=== PATIENT | female | born 1970 | race Caucasian/White ===

== ENCOUNTER 2016-07-24 18:26 | Emergency (ER) | payer OTHER ==
--- NOTE | ~2016-07-24 | CT71 ---
[facility] A Service of [facility] RADIOLOGY TEXT RESULTS PATIENT: COLTON KUHN LOCATION: [facility] : 70 UNIT #: [id number] AGE: [address]: Opal Steele MD SEX: F ORDER DR: [id number] [place], [place] [address] [id number] E MR#: [id number] Acc #: [id number] NAME: COLTON KUHN. : 1970 SEX: F STUDY DATE/TIME: 07/24/2016 17:17 UNIT: [place] ROOM: STUDY DESCRIPTION: CT Head Wo Contrast Attending Physician: Opal Steele M.D. Ordering Physician: Opal Steele M.D. Primary Care Physician: Primary Care Physician No MEDICAL IMAGING REPORT This report is preliminary unless electronic signature is present EXAM CT brain without contrast, 07/24/2016 HISTORY Headache for 2 weeks. No injury. TECHNIQUE This CT exam was performed with one or more of the following radiation dose reduction techniques: automatic exposure control, adjustment of mA and/or kV according to patient size, and iterative reconstruction. FINDINGS CT brain without contrast demonstrates probable prominent perivascular spaces in the right lentiform nucleus, likely incidental. No intracranial hemorrhage, mass or edema. No midline shift, ventricular dilatation, or extraaxial fluid collection. IMPRESSION Negative CT brain. Dictated by... Manolo Brunson M.D. THIS IS AN ELECTRONICALLY VERIFIED REPORT Manolo Brunson M.D. at 07/25/2016 3:09 PM DFL/purvi TD: 07/25/2016 04:28 JOB #: [id number] MEDICAL IMAGING REPORT [facility] A Service [facility] RADIOLOGY TEXT RESULTS PATIENT: COLTON KUHN LOCATION: [facility] : 70 UNIT #: [id number] AGE: [address]: Opal Steele MD SEX: F ORDER DR: AMINAH
--- NOTE | ~2016-07-24 | CR243 ---
[facility] A Service of [facility] RADIOLOGY TEXT RESULTS PATIENT: COLTON KUHN LOCATION: [place] : 70 UNIT #: [id number] AGE: [address]: Opal Steele MD SEX: F ORDER DR: [id number] [facility] [address] [place], [place] [address] [id number] E MR#: [id number] Acc #: [id number] NAME: COLTON KUHN. : 1970 SEX: F STUDY DATE/TIME: 07/24/2016 17:34 UNIT: [facility] ROOM: STUDY DESCRIPTION: CR Thoracic Spine 3 Views Attending Physician: Opal Steele M.D. Ordering Physician: Opal Steele M.D. Primary Care Physician: Primary Care Physician No MEDICAL IMAGING REPORT This report is preliminary unless electronic signature is present EXAM Thoracic spine 3 views. HISTORY Upper back pain x1 week. No known injury. FINDINGS AP and lateral examination of the dorsal segment shows normal mineralization and a satisfactory anatomical dorsal kyphosis. All body heights, interspaces, and posterior elements are normal anatomically without any indication of malignancy, trauma, unusual paraspinal soft tissue density mass, or congenital defect. IMPRESSION Normal thoracic spine. Dictated by... Garrett Crook M.D. THIS IS AN ELECTRONICALLY VERIFIED REPORT Garrett Crook M.D. at 07/25/2016 5:04 PM Foster TD: 07/25/2016 06:10 JOB #: [id number] MEDICAL IMAGING REPORT COPY
[2016-07-24 17:27] LABS: BASOPHIL# 0.1 X10e3 (0-0.3); BASOPHIL% 1.3 % (0-2.5); EOSINOPHIL# 0.1 X10e3 (0-0.7); EOSINOPHIL% 0.9 % (0.0-7.0); HEMATOCRIT 40.6 % (35.0-45.0); LYMPHOCYTE# 2.7 X10e3 (1.0-3.5); LYMPHOCYTE% 27.7 % (17.0-45.0); MEAN CELL VOLUME 88.1 FL (83-96); MEAN CORPUSCULAR HEMOGLOBIN 30.3 PG (28-34); MEAN CORPUSCULAR HGB CONC 34.4 g/dL (30-36); MEAN PLATELET VOLUME 7.7 FL (6.5-11.5); MONOCYTE# 0.7 X10e3 (0-1.0); MONOCYTE% 6.9 % (3.0-12.0); NEUTROPHIL# 6.2 X10e3 (1.5-7.1); NEUTROPHIL% 63.2 % (40-75); PLATELET COUNT 299 X10e3 (140-420); RED CELL DISTRIBUTION WIDTH 12.6 % (11.0-15.5); WHITE BLOOD COUNT 9.8 X10e3 (4.0-10.5)
[2016-07-24 17:29] LABS: DIFF IND NO
[2016-07-24 17:53] LABS: INR 1.1; PARTIAL THROMBOPLASTIN TIME 29.3 SECONDS (23.5-31.3); PROTHROMBIN TIME (PATIENT) 11.2 SECONDS (9.6-11.5)
[2016-07-24 18:03] LABS: ALBUMIN SERUM 4.3 g/dL (3.5-5.0); ALKALINE PHOSPHATASE 103 U/L (32-92); ALT (SGPT) 18 U/L (10-40); AST (SGOT) 26 U/L (10-42); BILIRUBIN, DIRECT 0.2 mg/dL (0.0-0.2); BILIRUBIN,INDIRECT 0.1 mg/dL (0.0-0.9); BILIRUBIN,TOTAL 0.3 mg/dL (0.2-2.0); BLOOD UREA NITROGEN 7 mg/dL (9-23); CALCIUM SERUM 9.3 mg/dL (8.4-10.2); CARBON DIOXIDE 26 mmol/L (22-31); CHLORIDE 90 mmol/L (100-111); CREATININE SERUM 0.5 mg/dL (0.6-1.4); GLOM FILT RATE Estimated ABOVE60 mL/min (>60); GLUCOSE FASTING 95 mg/dL (70-110); PROTEIN TOTAL SERUM 7.3 g/dL (6.0-8.3)
[2016-07-24 18:04] LABS: POTASSIUM 3.1 mmol/L (3.5-5.1); SODIUM 126 mmol/L (135-145)
[~2016-07-24 18:26] MED LIST: ACETAMINOPHEN; ALBUTEROL17 GM INH; BACTRIM DS TABL1 TA2 PO; CIPRO HC OTIC S10 ML OT; CIPRO PO; DICLOFENAC PO; FLEXERIL10 MG PO; IBUPROFEN800 MG PO; LORTAB 5/500 TA1 TA1 PO; NAPROSYN500 MG PO; NO MEDICATIONS; PEN-VEE K PO; PENICILLIN V P500 MG PO; PREDNISONE PO; PROMETHAZINE-D240 ML PO; ROBAXIN PO; SILVADENE TOP; VOLTAREN75 MG PO; ZITHROMAX PO; ZOFRAN ODT4 MG PO
[2016-08-23] MEDS ORDERED: IBUPROFEN600 MG PO (10:25)
[2016-08-23] MEDS ORDERED: SODIUM CHLORIDE1 GM PO (10:25)
[2016-08-23] MEDS ORDERED: POTASSIUM99 M2 PO (10:26)
[2016-08-23] MEDS ORDERED: ACETAMINOPHEN PO (10:26)
[2016-08-23] MEDS ORDERED: HYDROCODON-ACE1 EAC9 PO (10:27)
== END 2016-07-24 19:05 | disposition home or self-care (01) ==
LOC: CFTX 18:26
PROVIDERS: Emergency Medicine
DX: R51 Headache (principal); E87.1 Hypo-osmolality and hyponatremia; F17.210 Nicotine dependence, cigarettes, uncomplicated; Z88.5 Allergy status to narcotic agent
CPT/HCPCS: 36415; 70450; 72072; 80048; 80076; 85025; 85610; 85730; 96372; 99284; J1885

== ENCOUNTER 2016-08-23 10:35 | Emergency (ER) | payer OTHER ==
[~2016-08-23 10:35] MED LIST changes: +ACETAMINOPHEN PO; +HYDROCODON-ACE1 EAC9 PO; +IBUPROFEN600 MG PO; +POTASSIUM99 M2 PO; +SODIUM CHLORIDE1 GM PO
== END 2016-08-23 11:05 | disposition home or self-care (01) ==
LOC: SED 10:35
DX: G89.29 Other chronic pain (principal); M54.2 Cervicalgia; M54.5 Low back pain; F17.210 Nicotine dependence, cigarettes, uncomplicated; Z88.5 Allergy status to narcotic agent; Z79.899 Other long term (current) drug therapy
CPT/HCPCS: 96372; 99283; J1885